=== PATIENT | female | born 1970 | race Caucasian/White ===

== ENCOUNTER → 2021-10-11 08:08 | Outpatient (CLI) | payer OTHER, SELFPAY ==
[2021-10-11 19:16] LABS: Add Manual Diff / Slide Review NO; Basophils Absolute Auto 100 /uL (0-100); Basophils Percent Auto 1.1 % (0-2); Eosinophils Absolute Auto 200 /uL (0-450); Eosinophils Percent Auto 2.5 % (2-4); Hematocrit 39.6 % (36-46); Hemoglobin 13.2 g/dL (12.0-16.0); Lymphocytes Absolute Auto 2000 /uL (1100-4500); Lymphocytes Percent Auto 31.3 % (25-40); Mean Corpuscular HGB Conc 33.4 % (30-36); Mean Corpuscular Hemoglobin 30.3 PG (26-34); Mean Corpuscular Volume 90.7 fL (80-100); Monocytes Absolute Auto 500 /uL (0-900); Monocytes Percent Auto 8.6 % (3-14); Neutrophils Absolute Auto 3600 /uL (1500-7000); Neutrophils Percent Auto 56.5 % (50-75); Platelet Count 278 X10^3/uL (150-400); Red Blood Cell Count 4.37 X10^6/uL (4.0-5.2); Red Cell Distribution Width 13.6 % (11.6-14.8); White Blood Cell Count 6.3 X10^3/uL (4.5-11.0)
[2021-10-11 19:42] LABS: Alanine Aminotransferase 15 IU/L (<35); Albumin Globulin Ratio 1.5 (1.0-2.8); Alkaline Phosphatase 47 U/L (38-126); Aspartate Aminotransferase 25 IU/L (14-36); Bilirubin Total 0.5 mg/dL (0.2-1.3); Blood Urea Nitrogen 10 mg/dL (7-17); Carbon Dioxide 28 mmol/L (22-32); Chloride 108 mmol/L (98-107); Cholesterol 242 mg/dL (140-199); Estimated Glomerular Filt Rate > 60.0 mL/min (>60); Globulin 2.6 g/dL (1.7-4.1); Glucose 96 mg/dL (70-100); HEMOLYSIS < 15 (0-50); Potassium 4.8 mmol/L (3.4-5.1); Sodium 138 mmol/L (137-145); Total Protein 6.6 g/dL (6.3-8.2); Triglycerides 90 mg/dL (35-150)
[2021-10-11 20:11] LABS: HDL Cholesterol 149 mg/dL (40-60); LDL Cholesterol Calculated 75 mg/dL (<100)
== END ==
PROVIDERS: PCP Family Medicine; Visit Provider Physician Assistant
DX: Z00.01 Encounter for general adult medical examination with abnormal findings (principal); F17.200 Nicotine dependence, unspecified, uncomplicated
CPT/HCPCS: 80053; 80061; 85025

== ENCOUNTER → 2022-06-19 11:14 | Outpatient (CLI) | payer OTHER, SELFPAY ==
--- NOTE | 2022-06-19 | DI.MRI.S_ITS ---
PROCEDURE: MR SHOULDER LT WO CON INDICATIONS: CONCERN FOR BICEPT TENDON RUPTURE TECHNIQUE: Noncontrast oblique coronal T2 fast spin echo with fat saturation, oblique sagittal T1 spin echo and T2 fast spin echo with fat saturation, axial T1 spin echo and T2 fast spin echo with fat saturation through the shoulder. COMPARISON: [facility], RG, SHOULDER MIN 2VW (LT), 06/09/2022, 12:31. [facility] ([facility]), CR, XR SHOULDER LT MIN 2V, 05/01/2022, 10:44. FINDINGS: Image quality: Excellent. Rotator cuff: There is low-grade interstitial tearing of the infraspinatus tendon adjacent to the greater tuberosity fracture superimposed on mild supraspinatus and infraspinatus tendinosis. The teres minor tendon is intact. The subscapularis tendon is intact. There is mild edema within the medial portion of the supraspinatus muscle, consistent with a low-grade strain. The rotator cuff musculature is normal in bulk. Bones and bursae: Osseous edema and linear T1 hypointensities are seen at the greater tuberosity, consistent with a comminuted nondisplaced fracture, possibly related to a prior impaction injury. The fracture extends into the bicipital groove anteriorly without significant cortical step-off seen. The osseous structures otherwise intact. No cartilage defect is seen in the glenohumeral joint. There are mild degenerative changes at the acromioclavicular joint. A small amount of fluid is seen in the subacromial/subdeltoid bursa overlying the fracture. No significant glenohumeral effusion. Capsule and soft tissues: No displaced labral tear. Small amount of fluid in the biceps long head tendon sheath is suspicious for tenosynovitis. No definite biceps tendon tearing is seen. There is mild partial effacement of the normal fat signal in the rotator interval. Glenohumeral ligaments are intact. IMPRESSION: 1. Comminuted nondisplaced fracture of the greater tuberosity with mild surrounding osseous edema. 2. Low-grade partial intrasubstance tearing of the distal infraspinatus tendon adjacent to the fracture site. Mild supraspinatus and infraspinatus tendinosis. No full-thickness rotator cuff tendon tear. 3. Mild biceps long head tenosynovitis without definite tendon tearing. 4. Mild acromioclavicular osteoarthrosis. 5. Small subacromial/subdeltoid bursal effusion is most likely related to the greater tuberosity fracture. Dictated by: Tyler Ash M.D. on 06/19/2022 at 14:27 Approved by: Tyler Ash M.D. on 06/19/2022 at 14:35
== END ==
PROVIDERS: PCP Physician Assistant; Referring Provider Physician Assistant; Visit Provider Physician Assistant
DX: S46.912A Strain of unspecified muscle, fascia and tendon at shoulder and upper arm level, left arm, initial encounter; S42.255A Nondisplaced fracture of greater tuberosity of left humerus, initial encounter for closed fracture; M19.012 Primary osteoarthritis, left shoulder; M65.822 Other synovitis and tenosynovitis, left upper arm; M75.22 Bicipital tendinitis, left shoulder; V89.2XXA Person injured in unspecified motor-vehicle accident, traffic, initial encounter
CPT/HCPCS: 73221

== ENCOUNTER → 2024-05-07 09:28 | Outpatient (CLI) | payer OTHER, SELFPAY ==
[2024-05-07 19:34] LABS: Basophils Absolute Auto 0 /uL (0-100); Basophils Percent Auto 0.7 % (0-2); Eosinophils Absolute Auto 100 /uL (0-450); Eosinophils Percent Auto 1.9 % (2-4); Hematocrit 39.7 % (36-46); Hemoglobin 13.4 g/dL (12.0-16.0); Lymphocytes Absolute Auto 2100 /uL (1100-4500); Lymphocytes Percent Auto 38.9 % (25-40); Mean Corpuscular HGB Conc 33.8 % (30-36); Mean Corpuscular Hemoglobin 31.7 PG (26-34); Mean Corpuscular Volume 93.8 fL (80-100); Monocytes Absolute Auto 500 /uL (0-900); Neutrophils Absolute Auto 2700 /uL (1500-7000); Neutrophils Percent Auto 49.5 % (50-75); Platelet Count 211 X10^3/uL (150-400); Red Blood Cell Count 4.24 X10^6/uL (4.0-5.2); White Blood Cell Count 5.4 X10^3/uL (4.5-11.0)
[2024-05-07 19:37] LABS: Add Manual Diff / Slide Review SLIDE REVIEW
[2024-05-07 19:42] LABS: Alanine Aminotransferase 21 IU/L (<35); Albumin 4.5 g/dL (3.5-5.0); Albumin Globulin Ratio 1.6 (1.0-2.8); Alkaline Phosphatase 64 U/L (38-126); Aspartate Aminotransferase 29 IU/L (14-36); BUN Creatinine Ratio 16.3 (6-22); Bilirubin Total 0.6 mg/dL (0.2-1.3); Blood Urea Nitrogen 8 mg/dL (7-17); Calcium 9.2 mg/dL (8.4-10.2); Carbon Dioxide 24 mmol/L (22-32); Chloride 108 mmol/L (98-107); Cholesterol 272 mg/dL (140-199); Estimated Glomerular Filt Rate > 60 mL/min (>60); Globulin 2.8 g/dL (1.7-4.1); Glucose 99 mg/dL (70-100); HEMOLYSIS < 15 (0-50); Potassium 4.4 mmol/L (3.4-5.1); Sodium 140 mmol/L (137-145); Total Protein 7.3 g/dL (6.3-8.2); Triglycerides 193 mg/dL (35-150)
[2024-05-07 20:10] LABS: TSH w/ Reflex to FT4 2.78 uIU/mL (0.47-4.68)
[2024-05-07 20:14] LABS: HDL Cholesterol 157 mg/dL (40-60); LDL Cholesterol Calculated 76 mg/dL (<100)
[2024-05-07 20:54] LABS: RBC Morphology Normal Morphology
[2024-05-10 16:52] LABS: Hep C Virus Ab w/Reflex Quant NEGATIVE s/c (NEGATIVE)
== END ==
PROVIDERS: PCP Physician Assistant; Visit Provider Physician Assistant
DX: Z11.59 Encounter for screening for other viral diseases (principal); Z13.6 Encounter for screening for cardiovascular disorders; F41.9 Anxiety disorder, unspecified; F32.A Depression, unspecified; Z79.899 Other long term (current) drug therapy
CPT/HCPCS: 80053; 80061; 84443; 85025; 86803